=== PATIENT | male | born 1995 | race African-American/Black ===

== ENCOUNTER 2021-03-01 08:21 | Emergency (ER) | payer MEDICAID, SELFPAY ==
[~2021-03-01] VITALS: Ht 182.9 cm; Wt 83.0 kg
[2021-03-01] MEDS ORDERED: methylPREDNISolone 125MG 2ML VIAL IV ONE (09:40)
[2021-03-01] MEDS ORDERED: BENZONATATE 100 MG CAP PO ONE (09:45)
[2021-03-01] MEDS: ALBUTEROL 90 MCG/ACT 8GM HFA INHALER INH SCH ×3 (09:58→10:48)
[2021-03-01 10:17] VITALS: O2SAT 95
[2021-03-01 10:28] LABS: BASO % 0.4 % (0.0-1.0); EOS # 0.6 10^3/uL (0.0-0.5); EOS % 7.9 % (0.0-3.0); HEMATOCRIT 53.9 % (42.0-52.0); HEMOGLOBIN 17.6 g/dl (13.5-17.5); LYMPH # 2.1 10^3/uL (1.5-5.0); LYMPH % 29.1 % (24.0-44.0); MEAN CORPUSCULAR HEMOGLOBIN 27.7 pg (27.0-33.0); MEAN CORPUSCULAR HGB CONC 32.7 g/dl (32.0-36.5); MEAN CORPUSCULAR VOLUME 84.7 fl (80.0-96.0); MONO # 0.8 10^3/uL (0.0-0.8); MONO % 10.5 % (2.0-8.0); NEUTROPHILS # 3.8 10^3/uL (1.5-8.5); PLATELET COUNT, AUTOMATED 164 10^3/uL (150-450); RED BLOOD COUNT 6.36 10^6/uL (4.30-6.10); WHITE BLOOD COUNT 7.3 10^3/uL (4.0-10.0)
[2021-03-01 10:51] LABS: ALBUMIN 4.4 GM/DL (3.2-5.2); ALT/SGPT 81 U/L (12-78); BILIRUBIN,DIRECT 0.2 MG/DL (0.0-0.2); BILIRUBIN,TOTAL 0.7 MG/DL (0.2-1.0); BLOOD UREA NITROGEN 11 MG/DL (7-18); CALCIUM LEVEL 9.6 MG/DL (8.5-10.1); CARBON DIOXIDE LEVEL 29 MEQ/L (21-32); CHLORIDE LEVEL 108 MEQ/L (98-107); CK-MB VALUE MASS < 1.0 NG/ML (<3.6); CPK CREATINE PHOSPHOKINASE 559 U/L (39-308); CREATININE FOR GFR 1.01 MG/DL (0.70-1.30); GLOMERULAR FILTRATION RATE > 60.0 (>60); GLUCOSE, FASTING 90 MG/DL (70-100); MB/CK RELATIVE INDEX 0.18 (< OR =4); NT-PRO BNP < 5 PG/ML (<125); SODIUM LEVEL 142 MEQ/L (136-145); TOTAL PROTEIN 8.3 GM/DL (6.4-8.2); TROPONIN I 0.02 NG/ML (< 0.10)
--- NOTE | 2021-03-01 12:04 | REP ---
INDICATION: DYSPNEA/COUGH COMPARISON: None. TECHNIQUE: PA/Lateral FINDINGS: Lungs: Clear, no infiltrate. Heart: Normal in size. Mediastinum: Mediastinal silhouette unremarkable. Pleural angles: Unremarkable.. Bones and soft tissues: Unremarkable. IMPRESSION: No acute pulmonary disease. <Electronically signed by Renzo Chicas > 03/01/21 1200
[2021-03-01] MEDS: COMBIVENT RESPIMAT 100-20MCG INHALER 4GM INH SCH ×2 (12:46→13:07)
[2021-03-01] MEDS ORDERED: PRED20TA PO (14:44)
[2021-03-01] MEDS ORDERED: AZIT-12 PO (14:44)
[2021-03-01] MEDS ORDERED: PROAAER10 INH (14:44)
[2021-03-01] MEDS ORDERED: AMOX500C PO (14:52)
[2021-03-01] MEDS ORDERED: TESS100C PO (15:06)
[2021-03-01 15:27] VITALS: BP 133/60
--- NOTE | 2021-03-03 05:45 | ECGEPIP ---
[facility] - ED Test Date: 2021-03-01 Pat Name: MAR SWANSON Department: Room: - Gender: Male Director Of People: : 1995 Requested By: ULISES Padron PA-C Order Number: [id number] Reading MD: Fidencio Cohen Measurements Intervals [place] Rate: 78 P: 47 NE: 146 QRS: 70 QRSD: 78 T: 12 QT: 364 QTc: 414 Interpretive Statements Normal sinus rhythm with sinus arrhythmia INCOMPLETE RIGHT BUNDLE BRANCH BLOCK POOR R WAVE PROGRESSION NO PRIORS FOR COMPARISON Electronically Signed on 03-03-2021 5:45:17 EDT by Fidencio Cohen
== END 2021-03-01 15:32 | disposition home or self-care (01) ==
LOC: M ED 08:21
DX: J45.901 Unspecified asthma with (acute) exacerbation (principal); Z91.013 Allergy to seafood
CPT/HCPCS: 36600; 71046; 80048; 80076; 82550; 82553; 82803; 83880; 85025; 87798; 87880; 93005; 93041; 94640; 96374; 99285; J2930